=== PATIENT | male | born 1975 | race Caucasian/White ===

== ENCOUNTER 2019-05-07 14:57 | Inpatient (IN) | payer MEDICAID ==
[~2019-05-07] VITALS: Ht 167.6 cm; Wt 84.1 kg
[~2019-05-07 14:57] MED LIST: ARIP15TA2 PO; FLUO10TA3 PO; PAIN MEDS
[2019-05-07] MEDS ORDERED: HALOPERIDOL LACTATE 5 MG/ML VIAL IM ONE (16:00)
[2019-05-07] MEDS ORDERED: LORazepam 2 MG/ML VIAL IM ONE (16:00)
[2019-05-07] MEDS ORDERED: DiphenhydrAMINE HCL 50 MG/ML VIAL IM ONE (16:00)
[2019-05-07 16:30] LABS: ANION GAP 10 mmol/L (8-16); CALCIUM, TOTAL 8.8 mg/dL (8.8-10.5); CARBON DIOXIDE 25 mmol/L (22-29); CHLORIDE 107 mmol/L (98-107); GLOMERULAR FILTR. RATE CALC > 60 mL/min (>60); GLUCOSE,RANDOM 128 mg/dL (70-110); POTASSIUM 3.9 mmol/L (3.5-5.1); SODIUM SERUM 142 mmol/L (136-145); UREA NITROGEN, BLOOD 23 mg/dL (7-18)
[2019-05-07 16:35] LABS: ALANINE AMINOTRANSFERASE 26 U/L (12-78); ALBUMIN 4.1 g/dL (3.4-5.0); ALKALINE PHOSPHATASE 102 U/L (46-116); ASPARTATE AMINOTRANSFERASE 21 U/L (15-37); BASOPHILS % (AUTO) 0.8 % (0.0-2.0); BILIRUBIN,TOTAL 1.1 mg/dL (0.1-1.0); EOSINOPHILS % (AUTO) 0.9 % (1.0-6.0); HEMATOCRIT 40.5 % (41-53); HEMOGLOBIN 13.7 g/dL (13.5-17.5); LYMPHOCYTES # (AUTO) 1.4 K/uL (1.0-4.8); LYMPHOCYTES % (AUTO) 11.1 % (22.0-44.0); MEAN CORPUSCULAR HEMOGLOBIN 31.9 pg (26.0-34.0); MEAN CORPUSCULAR HGB CONC 33.8 G/dL (31.0-37.0); MEAN CORPUSCULAR VOLUME 95 fL (80-100); MONOCYTES # (AUTO) 0.9 K/uL (0.1-1.0); MONOCYTES % (AUTO) 7.1 % (2.0-9.0); NEUTROPHILS # (AUTO) 10.1 K/uL (1.8-7.7); NEUTROPHILS % (AUTO) 80.1 % (40.0-70.0); PLATELET COUNT (AUTO) 182 K/uL (150-450); RED BLOOD CELL COUNT(AUTO) 4.29 MIL/uL (4.50-5.90); TOTAL PROTEIN, SERUM 7.1 g/dL (6.4-8.2)
[2019-05-07] MEDS ORDERED: FLUO-191 PO (16:59)
[2019-05-07] MEDS ORDERED: HALOPERIDOL 5 MG TABLET PO PRN (17:00)
[2019-05-07] MEDS ORDERED: ZOLPIDEM TARTRATE 10 MG TABLET PO PRN (17:00)
[2019-05-07] MEDS ORDERED: LORazepam 2 MG TABLET PO PRN (17:00)
[2019-05-07 19:04] VITALS: BP 128/74
[2019-05-08 05:39] VITALS: BP 104/67
[2019-05-08 08:21] VITALS: BP 127/57
[2019-05-08 08:52] LABS: CHOL/HDL RATIO 2.4 (4.2-7.3); FREE T4 (FREE THYROXINE) 1.23 ng/dL (0.76-1.46); THYROID STIMULATING HORMONE 1.03 uIU/mL (0.36-3.74)
[2019-05-08] MEDS ORDERED: ONDANSETRON HCL 4 MG TABLET PO PRN (09:15)
[2019-05-08] MEDS ORDERED: LOPERAMIDE HCL 2 MG CAPSULE PO PRN (09:15)
[2019-05-08] MEDS ORDERED: ALBUTEROL SULFATE HFA 90 MCG/PUFF 8 GM INHALER IH PRN (09:15)
[2019-05-08] MEDS ORDERED: ACETAMINOPHEN 325 MG TABLET PO PRN (09:15)
[2019-05-08] MEDS ORDERED: MAG HYDROX/AL HYDROX/SIMETH ES 30 ML SUSPENSION UDCUP PO PRN (09:15)
[2019-05-08] MEDS ORDERED: BACITRACIN 28.4 GM OINTMENT TP PRN (09:15)
[2019-05-08] MEDS ORDERED: CloNIDine HCL 0.1 MG TABLET PO PRN (09:15)
[2019-05-08] MEDS ORDERED: MAGNESIUM HYDROXIDE SUSPENSION 30 ML UDCUP PO PRN (09:15)
[2019-05-08] MEDS ORDERED: PETROLATUM,WHITE 28 GM JELLY TP PRN (09:15)
[2019-05-08] MEDS ORDERED: BENZOCAINE/MENTHOL LOZENGE MM PRN (09:15)
[2019-05-08] MEDS ORDERED: IBUPROFEN 600 MG TABLET PO PRN (09:15)
[2019-05-08 16:00] VITALS: BP 129/70
[2019-05-08] MEDS: QUEtiapine FUMARATE 200 MG TABLET PO SCH (20:42)
[2019-05-08] MEDS ORDERED: INFLUENZA VIRUS VACCINE QVS 2019-20 (3YR+)/PF 60 MCG/0.5 ML SYRINGE IM ONE (21:00)
[2019-05-09 06:20] VITALS: BP 122/75
[2019-05-09 08:43] VITALS: BP 108/54
[2019-05-09] MEDS: FLUoxetine HCL 20 MG CAPSULE PO SCH (08:49)
[2019-05-09] MEDS: DOCUSATE SODIUM 100 MG CAPSULE PO SCH (08:49)
[2019-05-09] MEDS: OMEPRAZOLE 20 MG CAPSULE PO SCH (08:49)
[2019-05-09] MEDS: NICOTINE 21 MG/24 HOUR PATCH TD SCH (08:52)
[2019-05-09 16:12] VITALS: BP 114/72
[2019-05-09] MEDS: QUEtiapine FUMARATE 200 MG TABLET PO SCH (20:47)
[2019-05-10] VITALS: BP 100/63
[2019-05-10 08:45] VITALS: BP 123/91
[2019-05-10] MEDS: OMEPRAZOLE 20 MG CAPSULE PO SCH (08:57)
[2019-05-10] MEDS: FLUoxetine HCL 20 MG CAPSULE PO SCH (08:58)
[2019-05-10] MEDS: NICOTINE 21 MG/24 HOUR PATCH TD SCH (09:04)
[2019-05-10] MEDS: DOCUSATE SODIUM 100 MG CAPSULE PO SCH (09:04)
[2019-05-10 16:00] VITALS: BP 110/68
[2019-05-10] MEDS: QUEtiapine FUMARATE 200 MG TABLET PO SCH (20:12)
[2019-05-11 06:43] VITALS: BP 110/81
[2019-05-11 08:37] VITALS: BP 108/84
[2019-05-11] MEDS: OMEPRAZOLE 20 MG CAPSULE PO SCH (08:44)
[2019-05-11] MEDS: FLUoxetine HCL 20 MG CAPSULE PO SCH (08:44)
[2019-05-11] MEDS: DOCUSATE SODIUM 100 MG CAPSULE PO SCH (08:44)
[2019-05-11] MEDS: NICOTINE 21 MG/24 HOUR PATCH TD SCH (08:44)
[2019-05-11] MEDS ORDERED: QUET200T29 PO (08:49)
[2019-05-11] MEDS ORDERED: FLUO-191 PO (08:49)
== END 2019-05-11 13:00 | disposition home or self-care (01) | DRG 750 ==
LOC: EMS 15:01 → B3A 19:27
DX: F25.0 Schizoaffective disorder, bipolar type (principal); R45.851 Suicidal ideations; F15.10 Other stimulant abuse, uncomplicated; F41.9 Anxiety disorder, unspecified; G47.00 Insomnia, unspecified; F17.210 Nicotine dependence, cigarettes, uncomplicated; K59.00 Constipation, unspecified; Z79.899 Other long term (current) drug therapy
CPT/HCPCS: 84439; 84443; 90686; G0480; J1200; J1630; J2060

== ENCOUNTER 2020-09-18 08:56 | Emergency (ER) | payer MEDICAID ==
[~2020-09-18] VITALS: Ht 167.6 cm; Wt 84.1 kg
[~2020-09-18 08:56] MED LIST changes: -ARIP15TA2 PO; +FLUO-191 PO; -FLUO10TA3 PO; -PAIN MEDS; +QUET200T29 PO
[2020-09-18 09:04] VITALS: BP 120/94
[2020-09-18] MEDS ORDERED: ARIP10TA8 PO (09:08)
== END 2020-09-18 11:23 | disposition home or self-care (01) ==
LOC: EMS 09:00
DX: F25.0 Schizoaffective disorder, bipolar type (principal); F17.210 Nicotine dependence, cigarettes, uncomplicated
CPT/HCPCS: 99281; 99284; Z7502

== ENCOUNTER 2021-06-17 09:24 | Emergency (ER) | payer MEDICAID ==
[~2021-06-17] VITALS: Ht 172.7 cm; Wt 97.7 kg
[~2021-06-17 09:24] MED LIST changes: +ARIP10TA38 PO; -QUET200T29 PO; +QUET200T30 PO
[2021-06-17 09:26] VITALS: BP 109/87
[2021-06-17] MEDS ORDERED: BUPR-93 PO (09:31)
== END 2021-06-17 10:34 | disposition home or self-care (01) ==
LOC: EMS 09:24
DX: F25.0 Schizoaffective disorder, bipolar type (principal); Z76.0 Encounter for issue of repeat prescription; F17.210 Nicotine dependence, cigarettes, uncomplicated
CPT/HCPCS: 99281; Z7502